=== PATIENT | male | born 1965 | race Caucasian/White ===

== ENCOUNTER 2019-05-22 15:48 | Emergency (ER) | payer MEDICAID ==
[~2019-05-22] VITALS: Ht 175.3 cm; Wt 65.0 kg
[2019-05-22 15:56] VITALS: BP 133/86
== END 2019-05-22 17:07 | disposition home or self-care (01) ==
LOC: ED 17:01
DX: L40.0 Psoriasis vulgaris (principal); F17.200 Nicotine dependence, unspecified, uncomplicated
CPT/HCPCS: 99283; Q0177